=== PATIENT | male | born 1975 | race Caucasian/White ===

== ENCOUNTER → 2024-04-01 13:27 | Outpatient (REF) | payer OTHER, SELFPAY | LOC: RAD 13:27 | DX: R13.19 Other dysphagia (principal) | CPT/HCPCS: 71046 ==

== ENCOUNTER → 2024-04-08 10:05 | Outpatient (REF) | payer OTHER, SELFPAY | LOC: RAD 10:05 | DX: R13.19 Other dysphagia (principal) | CPT/HCPCS: 74221 ==

== ENCOUNTER 2024-11-25 04:04 | Inpatient (IN) | payer OTHER, SELFPAY ==
[2024-11-24 23:55] VITALS: BP 161/97
[2024-11-25] VITALS (15 sets, daily range): BP systolic 114–163; BP diastolic 69–104; PULSE 2–61; BMI 27.4; BMI 26.8; BMI 26.7
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
[2024-11-25] MEDS: ZOFRAN 4 MG IV ×2 (00:41→04:10)
[2024-11-25] MEDS: TORADOL 15 MG IV (00:41)
[2024-11-25] MEDS: NSS 1000 IV ×2 (00:44→05:00)
[2024-11-25 01:00] LABS: Hematocrit 43.2 % (39.0-52.0); Hemoglobin 14.3 g/dL (13.0-18.0); Mean Corp Hgb Conc. 33.1 g/dL (33.0-37.0); Mean Corpuscular Volume 83.1 fL (80.0-94.0); Nucleated Red Blood Cells % 0 % (-); Platelet Count 326 10^3/uL (130-400); Red Cell Dist. Width 15.8 % (11.5-14.5)
[2024-11-25 01:17] LABS: ALT (SGPT) 18 U/L (0-50); AST (SGOT) 22 U/L (17-59); Albumin 5.0 g/dl (3.5-5.0); Alkaline Phosphatase 108 U/L (38-126); Blood Urea Nitrogen 15 mg/dl (9-20); Calcium 9.9 mg/dl (8.4-10.2); Carbon Dioxide 24 mmol/L (22-30); Chloride 103 mmol/L (98-107); Estimated Creatinine Clearance > 125 ml/min; Glucose 172 mg/dl (70-99); Lipase 40 U/L (23-300); Potassium 4.7 mmol/L (3.5-5.1); Sodium 138 mmol/L (135-145); Total Protein 8.3 g/dl (6.3-8.2); eGFR > 60.00
[2024-11-25] MEDS: REGLAN 10 MG IV (02:08)
[2024-11-25] MEDS: PROTONIX IV 40 MG IV ×2 (02:08→08:32)
[2024-11-25] MEDS: BENADRYL 12.5 MG IV (02:08)
[2024-11-25] MEDS: FLAGYL 500 MG 100 IV (03:03)
[2024-11-25] MEDS: ROCEPHIN 1000 MG IV (03:03)
--- NOTE | 2024-11-25 03:17 | HPS.HSE ---
Family Physician
-
Family Physician: * NONE
Chief Complaint
-
N/V, Chest Pain
History of Present Illness
Patient is a 49y M with PMH significant for anxiety / depression, chronic pain and opioid use disorder who presents to ED complaining of drooling, epigastric pain and N/V. Patient states that he was feeling well until dinner this evening. He
ate a brussels sprout and felt that it 'got stuck' in his chest. He notes that he started drooling and retching with minimal relief of his symptoms. He had multiple episodes of 'dry heaves' / retching at home. Patient reports breaking out in a
sweat and feeling lightheaded. He felt some partial relief after some time of this - but not complete relief. He continues to have some discomfort in the lower chest / upper abdomen. He no longer has drooling, but has some persistent nausea with
occasional dry heaves.
Patient presented to the ED for further evaluation.
He reports multiple previous episodes of similar symptoms in the past. He states that he has never required endoscopy / food bolus retrieval in the past.
Patient also notes that he ran out of his omeprazole about one week ago.
Medical History
Past Medical History
Past Medical History: Reports Other
Additional Past Medical History:
Anxiety / Depression
Opioid Use Disorder
GERD / Hiatal Hernia
History of DVT
Past Surgical History: Reports None
Social History
Tobacco: Smoker (Current every day smoker. / ppd.)
Alcohol: None
Drug: Former User (History of intranasal opioid use. No prior IVDA. Last use was 1 year ago. Now maintained on methadone.)
Family History
Family History: Not pertinent
Allergies / Home Medications
Allergies reflects when Allergies were last updated in [facility].
Home Medications with original date entered in [facility]
Allergy/Medication List:
Allergies
Allergy/AdvReac Type Severity Reaction Status Date / Time
NKA - No Known Allergies Allergy Unknown Uncoded 11/24/24 23:54
Home Medications
bupropion HCl 300 mg 24 hr tablet, extended release (Wellbutrin XL) 300 mg PO DAILY 11/25/24
fluoxetine 10 mg capsule (Prozac) 10 mg PO DAILY 11/25/24
methadone 10 mg tablet 240 mg PO DAILY 11/25/24
omeprazole 40 mg capsule,delayed release 40 mg PO DAILY 11/25/24
Review of Systems
-
History Source: Patient
A 12 point ROS was completed and negative except as noted: Yes
Constitutional: Denies Fever or Chills
EENT: Denies Sore Throat
Respiratory: Denies Cough or Trouble Breathing
Cardiac: Reports Chest Pain and Diaphoresis; Denies Palpitations or Syncope
Abdomen/GI: Reports Abdominal Pain, Nausea, Vomiting and Constipated; Denies Diarrhea, Bloody Stools or Black Stools
: Denies Dysuria, Frequency, Flank Pain or Bleeding
Musculoskeletal: Denies Joint Pain or Edema
Neurological: Reports Dizzy; Denies Headache
Psych: Denies Depression or Anxiety
Physical Exam
Vital Signs
Vital Signs
Temp Pulse Resp BP Pulse Ox
98.1 F 74 12 150/89 100
11/25/24 00:55 11/24/24 23:55 11/25/24 00:55 11/25/24 00:51 11/25/24 00:51
Physical Exam
General: Other (49y M in mild distress due to pain. Mildly diaphoretic.)
HEENT: Moist mucous membranes and PERRLA
Respiratory: Clear; No Wheezes, Rales or Rhonchi
Cardiac: S1/S2 and Regular Rhythm; No Murmur
GI: Soft, Non Distended, Normal Bowel Sounds and Other (Mild LLQ tenderness without rebound / guarding. Normal bowel sounds.)
Musculoskeletal: No Clubbing, No Cyanosis and No Edema
Neuro: AO x 3
Laboratory Results
-
11/25/24 00:36
11/25/24 00:36
Laboratory Results
Total Bilirubin 0.8 mg/dl (0.2-1.3) 11/25/24 00:36
AST 22 U/L (17-59) 11/25/24 00:36
ALT 18 U/L (0-50) 11/25/24 00:36
Alkaline Phosphatase 108 U/L (38-126) 11/25/24 00:36
Lipase 40 U/L (23-300) 11/25/24 00:36
Impression/Plan
-
A/P: Patient is a 49y M with PMH significant for anxiety / depression and chronic opioid use disorder who presents to ED complaining of chest pain / epigastric pain and N/V, drooling.
Esophageal Foreign Body / Food Impaction
GERD / Hiatal Hernia
- Admit for further evaluation and treatment.
- Patient describes drooling, nausea and severe chest / epigastric pain after eating a brussels sprout this evening.
- Symptoms have improved from initial onset, but not fully resolved.
- CT scan done in the ED shows foreign body / food bolus in the distal esophagus.
- No further drooling, no shortness of breath, etc.
- Glucagon x 1 now and follow for any effect / improvement in symptoms.
- GI evaluation in the AM for additional recommendations / possible endoscopy if symptoms do not improve.
- Resume PPI (IV for now) - patient notes that he ran out of this recently.
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
- CT scan also shows diverticular changes with minimal inflammation but evidence of colovesicular fistula.
- Patient reports some chronic constipation on chronic opioids - but denies any recent abdominal pain, fevers / chills, etc.
- Continue IV abx for now - though suspect CT findings mostly reflect chronic changes.
- Colorectal Surgery evaluation for additional recommendations.
Opioid Use Disorder
Chronic Opioid Dependence
- Patient is maintained on methadone (240mg daily).
- Last use of recreational opioids (intranasal) was one year ago.
- Continue / resume usual methadone dosing once confirmed.
- Try to avoid any additional opioids acutely.
Anxiety / Depression
- Stable. Continue Wellbutrin / Prozac.
DVT Prophylaxis
History of DVT
- Patient reports prior h/o LE DVT - ? due to sedentary lifestyle / long car rides?
- Treated with OAC x 1 year and has been off of this since with no issues.
- Lovenox for DVT prophylaxis during acute stay.
Code Status: Full
[2024-11-25 03:36] LABS: Urine Character Clear (Clear)
[2024-11-25 04:47] LABS: Urine Red Blood Cell None Seen /HPF (0-2)
[2024-11-25] MEDS: TYLENOL 650 MG PO (04:59)
--- NOTE | 2024-11-25 05:00 | PTCARENOTE ---
Pt admitted to 2134 from ED. Ambulated with standby assist to bed. AAOx3, dry heaving and c/o upper abdominal discomfort 10/27. Pt not due for any PRN meds yet other than tylenol, med given. Pt now resting. Call [place] within reach.
[2024-11-25] MEDS: TORADOL 10 MG IV (06:36)
[2024-11-25 07:30] LABS: Hematocrit 42.8 % (39.0-52.0); Hemoglobin 13.8 g/dL (13.0-18.0); Mean Corp Hgb Conc. 32.2 g/dL (33.0-37.0); Mean Corpuscular Volume 83.6 fL (80.0-94.0); Platelet Count 291 10^3/uL (130-400); Red Cell Dist. Width 15.9 % (11.5-14.5)
[2024-11-25 07:50] LABS: Blood Urea Nitrogen 15 mg/dl (9-20); Calcium 9.5 mg/dl (8.4-10.2); Carbon Dioxide 25 mmol/L (22-30); Chloride 103 mmol/L (98-107); Estimated Creatinine Clearance > 125 ml/min; Glucose 111 mg/dl (70-99); Potassium 4.8 mmol/L (3.5-5.1); Sodium 138 mmol/L (135-145); eGFR > 60.00
--- NOTE | 2024-11-25 08:22 | CON.GI ---
Addendum entered and electronically signed by Aileen Woods MD 11/25/24 09:48:
I saw and examined the patient.
The SENIOR USER EXPERIENCE ARCHITECT's note was reviewed and I agree with the note.
Exam
Gen- no acute distress, comfortable
Lungs- clear
Abd - soft, NT,ND,BS +
Impression:
Food impaction
Chronic constipation
Colovesical fistula on CT
Chronic opiate/methadone use
plan
EGD today
CRS eval for colovesicular fistula
bowel regimen
Original Note:
Consultation
-
Date/Time Consultation Requested: 11/25/24424
Date/Time Consultation Performed: 11/25/04821
Requesting Provider: Dr. Bruner
Performing Provider: Dr. Woods/WILLIE Wayne
Reason for Consultation: dysphagia
Medical History
Chief Complaint / HPI
Chief Complaint: food imapction
History of Present Illness:
49-year-old male with past medical history of depression, substance abuse disorder,hx of DVT, GERD and history of intermittent dysphagia presents to the emergency room after eating a frozen egg roll and [place] sprouts with sensation of food being
stuck in his esophagus with retching and inability to pass this associated with inability to tolerate his secretions. Asked to evaluate for the same. The patient states that he has had multiple year history of intermittent dysphagia associated with
bread, meats that would always be slow to pass or get stuck intermittently. He states that he was placed on omeprazole 40 mg approximately 1 year ago with resolution of symptoms. However he ran out of this approximately 1 week ago. He states that
last evening he ate an egg roll as well as [place] sprouts and felt this promptly get stuck in his esophagus. He tried to bring this up. He started having significant epigastric discomfort associated with pain in his esophagus. He could not
tolerate any secretions started drooling. He presented to the emergency room. He is still with a sensation of food being stuck in the esophagus. CT findings of food in the distal esophagus. Preliminary read also shows questionable colovesicular
fistula. Colorectal surgery is consulted to evaluate. The patient states that he had chills associated with his dry heaves and vomiting. Denies any fevers, melena, hematochezia, odynophagia, early satiety or unintended weight loss. He does have
chronic constipation with methadone use. He states he has pebble-like stools every other day. He denies any lower abdominal pain. He denies any pneumaturia or passage of stool through his urethra. He never had any surgery. He has no family
history of gastrointestinal malignancy or IBD. Current medications include Wellbutrin, Prozac, methadone and previous use of omeprazole not taken in 1 week.
Past Medical History
Past Medical History: Other (Depression, substance abuse disorder)
Past Surgical History: None
Social History
Tobacco: Smoker
Alcohol: Former
Drug: Former User
Family History
Family History: Other (no family history of gastrointestinal malignancy or IBD)
Allergies / Home Medications
Allergy/AdvReac Type Severity Reaction Status Date / Time
NKA - No Known Allergies Allergy Unknown Uncoded 11/24/24 23:54
�Medication �Instructions �Recorded
bupropion HCl 300 mg 24 hr tablet, 300 mg PO DAILY 11/25/24
extended release (Wellbutrin XL)
fluoxetine 10 mg capsule (Prozac) 10 mg PO DAILY 11/25/24
methadone 10 mg/mL oral concentrate mg PO DAILY 11/25/24
omeprazole 40 mg capsule,delayed 40 mg PO DAILY 11/25/24
release
Review of Systems
-
All other systems: A 12 pt ROS was Negative except as stated above in HPI
Vital Signs
Temp Pulse Resp BP Pulse Ox
98.7 F 85 20 147/95 98
11/25/24 07:55 11/25/24 07:55 11/25/24 07:55 11/25/24 07:55 11/25/24 07:55
Physical Exam
Exam
To be performed at time of upper endoscopy
Results
WBC 14.5 10^3/uL (4.8-10.8) H 11/25/24 07:17
Hgb 13.8 g/dL (13.0-18.0) 11/25/24 07:17
Hct 42.8 % (39.0-52.0) 11/25/24 07:17
MCV 83.6 fL (80.0-94.0) 11/25/24 07:17
Plt Count 291 10^3/uL (130-400) 11/25/24 07:17
Absolute Neuts (auto) 13.4 10^3/uL (1.4-6.5) H 11/25/24 00:36
Sodium 138 mmol/L (135-145) 11/25/24 07:17
Potassium 4.8 mmol/L (3.5-5.1) 11/25/24 07:17
Chloride 103 mmol/L (98-107) 11/25/24 07:17
Carbon Dioxide 25 mmol/L (22-30) 11/25/24 07:17
BUN 15 mg/dl (9-20) 11/25/24 07:17
Creatinine 0.8 mg/dL (0.7-1.3) 11/25/24 07:17
Calcium 9.5 mg/dl (8.4-10.2) 11/25/24 07:17
Total Bilirubin 0.8 mg/dl (0.2-1.3) 11/25/24 00:36
AST 22 U/L (17-59) 11/25/24 00:36
ALT 18 U/L (0-50) 11/25/24 00:36
Alkaline Phosphatase 108 U/L (38-126) 11/25/24 00:36
Lipase 40 U/L (23-300) 11/25/24 00:36
Diagnostic Image Results:
CT Abd/Pelvis IV contrast (preliminary report): Concern for foreign body/food bolus in the distal esophagus measuring 2.1 x 2.0 x 2.2 cm. No inflammation or evidence of perforation. Fistula between the sigmoid colon and the bladder with focus of
air extending into the superior bladder wall. Probably sequela of diverticulitis. No process. Minimal adjacent inflammation and this finding may be subacute to chronic. Cecum is mobile and located in the left abdomen. Normal appendix. No
volvulus or criteria for obstruction. Gallbladder and kidneys are unremarkable.
Prior GI Procedures:
EGD: Never
Colonoscopy: Never
Assessment / Plan
-
49-year-old male with past medical history of depression, substance abuse disorder,hx of DVT, GERD and history of intermittent dysphagia presents to the emergency room after eating a frozen egg roll and [place] sprouts with sensation of food being
stuck in his esophagus with retching and inability to pass this associated with inability to tolerate his secretions. Asked to evaluate for the same. Patient still with sx with inability to tolerte secretions.
Impression:
Food impaction
Chronic constipation
Colovesical fistula on CT
Chronic opiate/methadone use
Plan:
-NPO
-EGD this am
-CRS consulted
-Further recommendations after EGD
-
-
Thank you for consultation and allowing me to participate in the patient's care. Please call the radiocommunications technician GI physician during the after hours with any questions or concerns.
[2024-11-25] MEDS: PROZAC 10 MG PO (08:31)
[2024-11-25] MEDS: ZOSYN 50 IV ×3 (08:31→19:34)
[2024-11-25] MEDS: WELLBUTRIN XL (24 hour extended release) 300 MG PO (08:31)
[2024-11-25] MEDS: NSS (PRESERVATIVE FREE) 10 ML IV (08:32)
--- NOTE | 2024-11-25 10:24 | W.PN.UPDATE ---
Addendum entered and electronically signed by Aileen Woods MD 11/25/24 14:07:
continue antibiotics started by medical team for now until seen by colorectal ( patient denies any abdominal pain )
Original Note:
Update Note
Progress Note Update
EGD
Impression:
- LA Grade A esophagitis. Biopsied.
- Normal proximal esophagus.Biopsied
-- NO FOOD BOLUS IN THE ESOPHAGUS
- Biopsies were taken with a cold forceps for evaluation of
eosinophilic esophagitis.
- Gastritis, characterized by erythema. Biopsied.
- Retained food in the duodenum.
plan
ok to start on regular diet
PPI
bowel regimen
Ok to discharge from GI stand point after colorectal eval. patient requires outpatient colonoscopy
will recommend outpatient GI follow up
--- NOTE | 2024-11-25 12:00 | PTCARENOTE ---
Received pt back from endoscopy, VSS, AAOx3, methodone ordered and administered, meal ordered. Pt resting comfortably in bed with call [place] at side, no new orders at this time.
--- NOTE | 2024-11-25 12:17 | W.PN.HOSP.TC ---
Today's Communication/Plan
-
PPI regimen
Antibiotics pending colorectal eval (low threshold to discontinue)
Six-food elimination diet at discharge
Possible discharge later
Assessment / Plan
Assessment / Plan
#Eosinophilic esophagitis
#Chronic GERD with hiatal hernia
-Initial concern for food impaction, now s/p EGD showing EoE and LA grade A esophagitis
-Initial to CT scan with signs of foreign body/food bolus but again none present on EGD
-Home regimen includes omeprazole 40 mg daily for GERD, continued after procedure
-Will monitor patient following anesthesia, if stable consider DC on PPI regimen
-Encourage Six-food elimination diet (avoid milk, eggs, wheat, soy, fish, nuts)
-OP follow-up with GI for consideration of dupilumab if persistent
#Colovesicular fistula
#Sigmoid diverticulosis
-CT demonstrated signs of colovesicular fistula
-Likely related to chronic opioids and constipation
-Currently on IV Zosyn though no symptoms of diverticulitis, no fever
-Colorectal consult pending, appreciate recommendations
-Low threshold to discontinue antibiotics
-Plan for OP colonoscopy, bowel regimen at DC
#Opioid use disorder
#Chronic constipation
-Confirmed and resumed methadone 235 mg daily dosing
-Will plan for daily bowel regimen at discharge for constipation
#Anxiety/depression
-Home regimen includes Wellbutrin and Prozac, currently stable
#H/O DVT
-Secondary to provoked incident, stasis events
-Status post 1 year of AC, no longer on DOAC
Diet: Regular for now
DVT prophylaxis: SQ Lovenox
CODE STATUS: Full code
Disposition: Home when stable
Anticipated Discharge: Within 24 hours
Subjective/Interval History
-
Date of Service: November 25, 2024
Seen and examined at the bedside following procedure. EGD negative for food impaction, showed EoE. AFVSS at time of my eval
During procedure patient had low saturations under anesthesia and required intubation. Concern for sleep apnea, doing well following procedure, no signs of respiratory distress
Patient does state he was told he snores a lot. Denies diagnosis of MELISSA. Denies any acute medical complaints at time of my eval
Objective Data
-
Labs:
Laboratory Results
11/25/24 11/25/24
00:36 07:17
WBC 15.1 H 14.5 H
Hgb 14.3 13.8
Hct 43.2 42.8
Plt Count 326 291
Sodium 138 138
Potassium 4.7 4.8
Chloride 103 103
Carbon Dioxide 24 25
BUN 15 15
Creatinine 0.8 0.8
Glucose 172 H 111 H
Calcium 9.9 9.5
Total Bilirubin 0.8
AST 22
ALT 18
Alkaline Phosphatase 108
Vital Signs:
Vital Signs
Temp Pulse Resp BP Pulse Ox
97.7 F 77 16 125/77 92
11/25/24 11:22 11/25/24 11:22 11/25/24 11:22 11/25/24 11:22 11/25/24 11:22
I&O
11/24/24 11/25/24 11/26/24
06:59 06:59 06:59
Intake Total 280 / 280 500 / 500
Balance 280 / 280 500 / 500
Review of Systems
-
History Source: Patient
All other systems: Reviewed and negative
Physical Exam
-
General: Well Developed, Well Nourished and No Apparent Distress
HEENT: Normocephalic, Atraumatic and Moist Mucous Membranes
Respiratory: Clear to Auscultation and Non Labored Respirations; Negative Accessory Resp Muscle Use
Cardiac: Regular Rhythm and S1/S2; Negative Murmur, Rub or Gallop
GI: Soft, Nontender, Nondistended and Normal Bowel Sounds
Musculoskeletal: No Clubbing, No Cyanosis and No Edema
Skin: Warm and Dry; Negative Rash
Neuro: AO x 3, Nonfocal/Grossly Intact and Central Nerve's Intact
Psych: Calm
Data Reviewed
-
Labs: Labs Reviewed by me, Discussed with Physician (GI), Discussed with Nurse and Discussed with Patient
[2024-11-25] MEDS: METHADONE 100 MG/10 ML 235 MG PO (13:18)
--- NOTE | 2024-11-25 13:29 | CON.CRS ---
Consultation
-
Date/Time Consultation Requested: 11/25/2024, 04:24
Date/Time Consultation Performed: 11/25/2024, 09:00
Requesting Provider: Omid Bruner DO
Performing Provider: Joshua Alfonso MD
Reason for Consultation: colovesical fistula
Medical History
-
Chief Complaint: food stuck in throat
History of Present Illness:
49-year-old male presents to [facility] ER complaining of a sensation of food stuck in his esophagus after eating a frozen egg roll and [place] sprouts. This has happened in the past and is required upper endoscopies to retrieve the
boluses. He also notes he has some mild abdominal discomfort and swelling overnight. No fevers or chills noted at home. CT of the abdomen pelvis shows suspicion for an impacted food bolus in the distal esophagus, focus of gas within the anterior
bladder dome which is contiguous with small amount of gas within the inferior margin of the proximal sigmoid wall suspicious for partially developed colovesical fistula, likely sequela of prior episodes of diverticulitis. Moderate sigmoid
diverticulitis.
On admission his WBC was 15.1 and is 14.5 today. He was started on Zosyn IV antibiotics. He states sometimes he has dark-colored urine. His bowels typically are constipated. He denies any air bubbles in his urine. He has never had a UTI. He
occasionally has burning when he urinates. Never had a colonoscopy. Denies previous abdominal surgeries. Given these findings, we have been consulted for further surgical opinion.
Past Medical History
Past Medical History: Other (Depression, substance abuse disorder)
Past Surgical History: None
Social History
Tobacco: Smoker
Alcohol: Former
Drug: Former User
Family History
Family History: Reviewed & Not Pertinent
Allergies / Home Medications
Allergy/AdvReac Type Severity Reaction Status Date / Time
NKA - No Known Allergies Allergy Unknown Uncoded 11/24/24 23:54
�Medication �Instructions �Recorded �Confirmed �Type
bupropion HCl 300 mg 24 hr tablet, 300 mg PO DAILY 11/25/24 11/25/24 History
extended release (Wellbutrin XL)
fluoxetine 10 mg capsule (Prozac) 10 mg PO DAILY 11/25/24 11/25/24 History
methadone 10 mg/mL oral concentrate mg PO DAILY 11/25/24 History
omeprazole 40 mg capsule,delayed 40 mg PO DAILY 11/25/24 11/25/24 History
release
Review of Systems
-
History Source: Patient
Abdomen/GI: Abdominal Pain and Other (food sensation in esophagus)
A 10 point review of systems was completed, and was negative except as per HPI.
Physical Exam
Vital Signs
Temp 97.7 F 11/25/24 11:22
Pulse 77 11/25/24 11:22
Resp Rate 16 11/25/24 11:22
Blood pressure 125/77 11/25/24 11:22
SaO2 92 11/25/24 11:22
11/24/24 11/25/24 11/26/24
06:59 06:59 06:59
Actual Weight 94.71 kg 94.347 kg
Body Mass Index (BMI) 26.7
Lab Results / Allergies
11/25/24 07:17
11/25/24 07:17
WBC 14.5 10^3/uL (4.8-10.8) H 11/25/24 07:17
Hgb 13.8 g/dL (13.0-18.0) 11/25/24 07:17
Hct 42.8 % (39.0-52.0) 11/25/24 07:17
Plt Count 291 10^3/uL (130-400) 11/25/24 07:17
Abs Immat Gran (auto) 0.1 10^3/uL (0-0.05) H 11/25/24 00:36
Neutrophils % 88.3 % (42.2-75.2) H 11/25/24 00:36
Allergy/AdvReac Type Severity Reaction Status Date / Time
NKA - No Known Allergies Allergy Unknown Uncoded 11/24/24 23:54
Physical Exam
General: Well Developed, Well Nourished and No Apparent Distress
GI: Soft, Non Distended and Tender (mild suprapubic)
Skin: Warm
Neuro: AO x 3
Psych: Calm
Data Reviewed
-
CT Scan: Image Personally Visualized and interpreted, Report Reviewed by me and Discussed with Patient
Labs: Labs Reviewed by me, Discussed with Physician and Discussed with Patient
Old Records: Reviewed
Assessment / Plan
-
Assessment:49yo male with a sensation of food stuck, CT shows a focus of gas within the anterior bladder dome which is contiguous with small amount of gas within the inferior margin of the proximal sigmoid wall suspicious for partially developed
colovesical fistula, likely sequela of prior episodes of diverticulitis. Moderate sigmoid diverticulitis.
Plan:
-Change diet to low residue
-Continue IV antibiotics
-Unclear whether this is a colovesical fistula based on imaging. Will need eventual colonoscopy as an outpatient.
-No plans for surgery at this time
-Recommend monitor WBC another day.
-Follow up with Dr. Alfonso in the office after discharge.
--- NOTE | 2024-11-25 13:49 | CM ---
Reviewed the chart notes and spoke with the patient at the bedside. The patient resides with is parents in a one story home with one step to enter. The patient reports no DME/VN/SNF in the past. Patient confirmed his pharmacy of choice is [facility]. CM continues to be available to patient/family and is monitoring medical plan for needs at discharge.
Plan: Discharge to home when medically stable. No needs anticipated at this time.
[2024-11-25] MEDS: LOVENOX 40 MG SC (17:23)
[2024-11-25] MEDS: NSS IV (17:23)
[2024-11-26] MEDS: NSS 1000 IV (01:30)
[2024-11-26] MEDS: ZOSYN 50 IV ×2 (01:31→07:57)
[2024-11-26 04:45] VITALS: PULSE 2
[2024-11-26 06:00] VITALS: BMI 27.0
[2024-11-26 06:22] LABS: Hematocrit 39.3 % (39.0-52.0); Hemoglobin 12.6 g/dL (13.0-18.0); Mean Corp Hgb Conc. 32.1 g/dL (33.0-37.0); Mean Corpuscular Volume 84.9 fL (80.0-94.0); Nucleated Red Blood Cells % 0 % (-); Platelet Count 252 10^3/uL (130-400); Red Cell Dist. Width 16.4 % (11.5-14.5)
[2024-11-26 07:50] VITALS: BP 128/82
[2024-11-26] MEDS: WELLBUTRIN XL (24 hour extended release) 300 MG PO (07:58)
[2024-11-26] MEDS: METHADONE 100 MG/10 ML 235 MG PO (07:58)
[2024-11-26] MEDS: PROZAC 10 MG PO (07:58)
[2024-11-26] MEDS: PROTONIX 40 MG PO (07:58)
--- NOTE | 2024-11-26 10:11 | W.PN.HOSP.TC ---
Today's Communication/Plan
-
Transition to Augmentin
OP colonoscopy
Discharge
Assessment / Plan
Assessment / Plan
#Eosinophilic esophagitis
#Chronic GERD with hiatal hernia
-Initial concern for food impaction, now s/p EGD showing EoE and LA grade A esophagitis
-Initial to CT scan with signs of foreign body/food bolus but again none present on EGD
-Home regimen includes omeprazole 40 mg daily for GERD, continued after procedure
-Will monitor patient following anesthesia, if stable consider DC on PPI regimen
-Encourage Six-food elimination diet (avoid milk, eggs, wheat, soy, fish, nuts)
-OP follow-up with GI for consideration of dupilumab if persistent
#Colovesicular fistula
#Sigmoid diverticulitis
-CT demonstrated signs of colovesicular fistula
-Likely related to chronic opioids and constipation
-Currently on IV Zosyn though no symptoms of diverticulitis, no fever
-Colorectal consult pending, recommends course of antibiotics and OP follow-up for colonoscopy
-Will transition IV Zosyn to oral Augmentin to complete 10-day course
-Plan for OP colonoscopy, bowel regimen at DC
#Opioid use disorder
#Chronic constipation
-Confirmed and resumed methadone 235 mg daily dosing
-Will plan for daily bowel regimen at discharge for constipation
#Anxiety/depression
-Home regimen includes Wellbutrin and Prozac, currently stable
#H/O DVT
-Secondary to provoked incident, stasis events
-Status post 1 year of AC, no longer on DOAC
Diet: Regular for now
DVT prophylaxis: SQ Lovenox
CODE STATUS: Full code
Disposition: Home when stable
Anticipated Discharge: Today
Subjective/Interval History
-
Date of Service: November 26, 2024
Seen and examined at the bedside. No acute events reported overnight. AFVSS this morning
WBC downtrending. Patient states he has no abdomen pain, had breakfast without dysphagia and only mild odynophagia
Denies any new complaints today, states he feels well for discharge
Objective Data
-
Labs:
Laboratory Results
11/26/24
06:04
WBC 12.4 H
Hgb 12.6 L
Hct 39.3
Plt Count 252
Vital Signs:
Vital Signs
Temp Pulse Resp BP Pulse Ox
97.9 F 58 16 128/82 94
11/26/24 07:50 11/26/24 07:50 11/26/24 07:50 11/26/24 07:50 11/26/24 07:50
I&O
11/25/24 11/26/24 11/27/24
06:59 06:59 06:59
Intake Total 280 / 280 2170 / 2170 50 / 50
Output Total 1380 / 1380
Balance 280 / 280 790 / 790 50 / 50
Review of Systems
-
History Source: Patient
All other systems: Reviewed and negative
Physical Exam
-
General: Well Developed, Well Nourished and No Apparent Distress
HEENT: Normocephalic, Atraumatic, Moist Mucous Membranes and Anicteric
Respiratory: Clear to Auscultation and Non Labored Respirations; Negative Accessory Resp Muscle Use
Cardiac: Regular Rhythm and S1/S2; Negative Murmur, Rub or Gallop
GI: Soft, Nontender, Nondistended and Normal Bowel Sounds
Musculoskeletal: No Clubbing, No Cyanosis and No Edema
Skin: Warm and Dry; Negative Rash
Neuro: AO x 3 and Nonfocal/Grossly Intact
Psych: Calm
Data Reviewed
-
Labs: Labs Reviewed by me, Discussed with Physician (Colorectal) and Discussed with Patient
--- NOTE | 2024-11-26 11:23 | W.PN.CRS1 ---
Today's Communication / Plan
-
dispo planning
Assessment/Plan
-
49-year-old male with first documented episode of sigmoid diverticulitis with possible fistula to the bladder. Also with food bolus impaction of the esophagus.
PPD #1 EGD
AFVSS
Leukocytosis present but still trending down
Plan:
Continue low residue diet
ABX upon d/c
OP follow recommended with colorectal surgery for follow up colonoscopy
Ok for d/c from CRS standpoint
Subjective Data
Subjective Data
Date of Service: November 26, 2024
Pt seen and examined at bedside with Dr Alfonso. Denies n/v. Tolerating diet. Mild discomfort in central portion of abdomen. Not worsening. Passing flatus/bm.
Objective Data
-
Vital Signs
Temp Pulse Resp BP Pulse Ox
97.9 F 58 16 128/82 94
11/26/24 07:50 11/26/24 07:50 11/26/24 07:50 11/26/24 07:50 11/26/24 11:18
Intake & Output
11/25/24 11/26/24 11/27/24
06:59 06:59 06:59
Intake Total 280 / 280 2170 / 2170 50 / 50
Output Total 1380 / 1380
Balance 280 / 280 790 / 790 50 / 50
Intake:
Oral fluids 280 / 280 770 / 770
IV fluids (Total) 1300 / 1300
NSS 100 / 100
IV piggybacks 100 / 100 50 / 50
Output:
Urine, Voided 1380 / 1380
Other:
Number of approximated MODERATE 1 1
amounts of urine
Lab Results
11/26/24 06:04
11/25/24 07:17
Physical Exam
-
General: No Acute Distress
Abdomen: Soft, Non Distended and Tender (mild to mid abdomen)
Skin: Warm and Dry
[2024-11-26] MEDS: NSS IV (11:57)
--- NOTE | 2024-11-26 12:17 | CM ---
CM following re: discharge planning.
Reviewed pt's chart, met with pt.
Discharge order noted. Pt is aware, expressed his agreement and he stated his father will transport home.
No after care VN services indicated.
D/C plan: home no needs. Father to transport.
[2024-11-26] MEDS: ZOSYN IV (14:21)
[2024-11-26 15:45] VITALS: BP 139/94
[2024-11-26] MEDS: LOVENOX 40 MG SC (17:14)
[2024-11-26] MEDS: AUGMENTIN 875 MG/125 MG 1 TABLET PO (21:02)
[2024-11-26 22:20] VITALS: PULSE 2; PULSE 60
[2024-11-26 23:42] VITALS: BP 129/89
[2024-11-27 03:45] VITALS: PULSE 2
[2024-11-27 06:00] VITALS: BMI 27.1
[2024-11-27 07:30] VITALS: BP 135/88
[2024-11-27] MEDS: WELLBUTRIN XL (24 hour extended release) 300 MG PO (08:32)
[2024-11-27] MEDS: AUGMENTIN 875 MG/125 MG 1 TABLET PO (08:32)
[2024-11-27] MEDS: PROZAC 10 MG PO (08:32)
[2024-11-27] MEDS: PROTONIX 40 MG PO (08:32)
[2024-11-27] MEDS: METHADONE 100 MG/10 ML 235 MG PO (08:33)
--- NOTE | 2024-11-27 09:07 | CM ---
CM following re: discharge planning.
Pt's discharge has been postponed till today because pt's methadone clinic is closed on weekends.
Pt's parents will pick him up today at 12:00 p.m.
D/C plan: home with no after care VN services, pt will resume services at methadone clinic. Parents to transport
--- NOTE | 2024-11-27 11:19 | W.PN.HOSP.TC ---
Today's Communication/Plan
-
see A/P
NM today
Assessment / Plan
Assessment / Plan
# Eosinophilic esophagitis
# Chronic GERD with hiatal hernia
Initial concern for food impaction, now s/p EGD showing EoE and LA grade A esophagitis
Initial to CT scan with signs of foreign body/food bolus but again none present on EGD
Home regimen includes omeprazole 40 mg daily for GERD, continued after procedure
Encourage Six-food elimination diet (avoid milk, eggs, wheat, soy, fish, nuts)
OP follow-up with GI for consideration of dupilumab if persistent
# Colovesicular fistula
# Sigmoid diverticulitis
CT demonstrated signs of colovesicular fistula
Likely related to chronic opioids and constipation
Currently on IV Zosyn though no symptoms of diverticulitis, no fever
Will transition IV Zosyn to oral Augmentin to complete 10-day course
Plan for OP colonoscopy, bowel regimen at NM, appreciate Colorectal input
# Opioid use disorder
# Chronic constipation
Confirmed and resumed methadone 235 mg daily dosing
Will plan for daily bowel regimen at discharge for constipation
# Anxiety/depression
Home regimen includes Wellbutrin and Prozac, currently stable
# H/O DVT
Secondary to provoked incident, stasis events
Status post 1 year of AC, no longer on DOAC
Diet: Regular for now
DVT prophylaxis: SQ Lovenox
CODE STATUS: Full code
Disposition: Home when stable
Anticipated Discharge: Today
Subjective/Interval History
-
Date of Service: November 27, 2024
Objective Data
-
Vital Signs:
Vital Signs
Temp Pulse Resp BP Pulse Ox
36.7 C 61 16 135/88 92
11/27/24 07:30 11/27/24 07:30 11/27/24 07:30 11/27/24 07:30 11/27/24 07:30
I&O
11/26/24 11/27/24 11/28/24
06:59 06:59 06:59
Intake Total 2170 / 2170 510 / 510
Output Total 1380 / 1380
Balance 790 / 790 510 / 510
Review of Systems
-
History Source: Patient
All other systems: Reviewed and negative
Physical Exam
-
General: Well Developed, Well Nourished, No Apparent Distress, Comfortable and Conversant
HEENT: Normocephalic, Atraumatic and Moist Mucous Membranes
Respiratory: Clear to Auscultation and Non Labored Respirations; Negative Accessory Resp Muscle Use
Cardiac: Regular Rhythm and S1/S2; Negative Murmur, Rub or Gallop
GI: Soft, Nontender, Nondistended and Normal Bowel Sounds
Musculoskeletal: No Clubbing, No Cyanosis and No Edema
Skin: Warm and Dry; Negative Rash
Neuro: Awake, Alert and Nonfocal/Grossly Intact
Psych: Calm and Intact Judgement/Insight
--- NOTE | 2024-11-27 11:28 | W.DCSUMMARY ---
Discharge Summary
Discharge Data
Date of Admission: 11/25/24
Date of Discharge: 11/27/24
Total time spent discharging patient (in min): 40
-
Pending Results: No
Hospital Course
Principal Diagnosis:
Dysphagia due to Eosinophilic esophagitis.
Colovesicular fistula
Sigmoid diverticulitis
Chronic Diagnoses:�
Chronic GERD with hiatal hernia
Opioid use disorder with chronic constipation
Anxiety/depression. Home regimen includes Wellbutrin and Prozac
History of DVT
Consultations:�
Gastroenterology
Procedures:�
Upper endoscopy 11/25, noted: Grade A esophagitis. Biopsied.
Clinical course:�
This is a 49-year-old male, with past medical history as stated above, who presented with dysphagia.
Problem 1:
Dysphagia due to Eosinophilic esophagitis.
There was initial concern for food impaction, but his upper endoscopy showed EoE and LA grade A esophagitis, without evidence of food impaction/foreign body.
He was started with Protonix and can continue with 40 mg daily going forward.
He was encouraged to continue six-food elimination diet (avoid milk, eggs, wheat, soy, fish, nuts), and can consider OP follow-up with GI if symptoms recurs.
Problem 2:
Colovesicular fistula with sigmoid diverticulitis.
CT demonstrated signs of colovesicular fistula, which was likely related to chronic opioid use and constipation.
He received IV antibiotic Zosyn while in the hospital, and was discharged with oral Augmentin.
He can follow-up with colorectal surgery outpatient for outpatient colonoscopy evaluation.
As for the rest of his medical problems, they were stable during his hospital stay.
Discharge Plan
-
Patient Disposition: Home (Routine Discharge)
Discharge Diagnosis/Procedures: Eosinophilic esophagitis
Diverticulitis
Colovesicular fistula
Suspected sleep apnea
Condition: Fair
Diet: Low Residue and Other diet
Additional Diets: 6 food elimination diet (avoid milk, eggs, wheat, soy, fish, nuts). After 6 months reintroduce 1 food group at a time and avoid trigger foods
Activity: As tolerated
Blood Work: None
Others Tests: Colonoscopy with GI/colorectal surgery
Activity Restrictions/Additional Instructions:
Referral provided for family physician and colorectal surgery
It was noted that you likely have sleep apnea. Pulmonology referral provided, contact our office to schedule an appointment for sleep study
Referrals:
[facility] [Outside] - in less than 1 week
Joshua Alfonso MD [Active, ColoRectal] - in one week
NONE,* [Family Provider, Internal Medicine]
Avtar Brennan MD [Active, Pulmonary Medicine]
Additional Discharge Medication Instructions: Take Augmentin 875-125 mg every 12 hours to complete 10 days total of antibiotics (last day 12/04/2024)
Take pantoprazole 40 mg daily. If you run out contact your family doctor obtain refill
Prescriptions:
New
pantoprazole 40 mg Tablet,Delayed Release (Dr/Ec)
40 mg PO DAILY 30 Days Qty: 30 0RF
amoxicillin-pot clavulanate 875-125 mg tablet
1 tab PO Q12H 9 Days Qty: 18 0RF
sennosides-docusate sodium [Senexon-S] 8.6-50 mg tablet
1 tab-cap PO BID Qty: 60 0RF
polyethylene glycol 3350 [Miralax] 17 gram/dose powder
4 g PO DAILY PRN (Reason: Constipation) Qty: 119 0RF
Continued
fluoxetine [Prozac] 10 mg Capsule
10 mg PO DAILY
bupropion HCl [Wellbutrin XL] 300 mg Tablet Extended Release 24 Hr
300 mg PO DAILY
methadone 10 mg/mL Concentrate
235 mg PO DAILY
Discontinued
omeprazole 40 mg Capsule,Delayed Release(Dr/Ec)
40 mg PO DAILY
Discharge Orders:
Discharge Patient (As Directed); Ordered 11/26/24
Ordered By: Arnav Millan
Discharge Date and Time
Discharge Date/Time: 11/27/24 11:48
Print Language: DUTCH
--- NOTE | 2024-11-27 11:46 | PTCARENOTE ---
IV site removed, VSS, discharge paperwork discussed. educational packet on EOE given. pt picked up by father at main entrance.no questions at this time.
[2024-11-27 11:47] VITALS: BP 130/85
== END 2024-11-27 11:48 | disposition home or self-care (01) | DRG 392 ==
LOC: 2 NORTH 04:04
PROVIDERS: Physician Assistant; ADMITTING PHYSICIAN Hospitalist; ATTENDING PHYSICIAN Internal Medicine; CONSULT PHYSICIAN Internal Medicine Gastroenterology; EMERGENCY PHYSICIAN Emergency Medicine; OTHER PHYSICIAN Surgery
PROC: 0DB38ZX Excision of Lower Esophagus, Via Natural or Artificial Opening Endoscopic, Diagnostic (ICD-10-PCS; 2024-11-25)
PROC: 5A09357 Assistance with Respiratory Ventilation, Less than 24 Consecutive Hours, Continuous Positive Airway Pressure (ICD-10-PCS; 2024-11-25)
PROC: 0DB18ZX Excision of Upper Esophagus, Via Natural or Artificial Opening Endoscopic, Diagnostic (ICD-10-PCS; 2024-11-25)
PROC: 0DB68ZX Excision of Stomach, Via Natural or Artificial Opening Endoscopic, Diagnostic (ICD-10-PCS; 2024-11-25)
DX: K57.30 Diverticulosis of large intestine without perforation or abscess without bleeding (principal); N32.1 Vesicointestinal fistula; F11.20 Opioid dependence, uncomplicated; K20.0 Eosinophilic esophagitis; K29.70 Gastritis, unspecified, without bleeding; R13.10 Dysphagia, unspecified; F90.9 Attention-deficit hyperactivity disorder, unspecified type; K21.9 Gastro-esophageal reflux disease without esophagitis; F17.210 Nicotine dependence, cigarettes, uncomplicated; D72.829 Elevated white blood cell count, unspecified; F41.9 Anxiety disorder, unspecified; F32.A Depression, unspecified; G89.29 Other chronic pain; K44.9 Diaphragmatic hernia without obstruction or gangrene; K59.09 Other constipation; Z86.718 Personal history of other venous thrombosis and embolism
CPT/HCPCS: 74177; 80048; 80053; 81003; 81015; 83690; 85025; 85027; 87086; 88305; 88342; 93005; 94660; 96361; 96365; 96375; 99285; 99406; J1610; Q9967

== ENCOUNTER 2025-02-17 06:18 | Day surgery (SDC) | payer OTHER, SELFPAY | END 2025-02-17 11:06 | disposition home or self-care (01) | LOC: GI 06:18 | PROVIDERS: ATTENDING PHYSICIAN Internal Medicine Gastroenterology | DX: K57.30 Diverticulosis of large intestine without perforation or abscess without bleeding (principal); Z53.9 Procedure and treatment not carried out, unspecified reason | CPT/HCPCS: 45378 ==